=== PATIENT | female | born 1965 | race Caucasian/White ===

== ENCOUNTER 2017-09-17 09:27 | Emergency (ER) | payer MEDICARE, MEDICAID ==
[2017-09-17 09:33] VITALS: BP 143/70
[2017-09-17] MEDS ORDERED: OXYCODONE-ACETAMINOPHEN 5-325 MG TABLET PO ONE (10:05)
[2017-09-17] MEDS ORDERED: NORMAL SALINE 1000 ML 1,000 ML IV ONE (10:05)
--- NOTE | 2017-09-17 10:10 | ER Document Report ---
ED General - General Chief Complaint: Pelvic Pain Stated Complaint: BLOOD IN URINE Time Seen by Provider: 09/17/17 09:55 Information source: Patient Notes: Patient presents complaining of bleeding that she is uncertain where is coming from. Patient is uncertain if she may be having blood in her stool, having vaginal bleeding or blood in her urine. Patient states she has not had her menstrual cycle for over 23 years due to pituitary tumor. Patient states she did have some diarrhea yesterday although none today. Patient denies any nausea or vomiting. Patient denies any fever. Patient does complain of some lower pelvic pain. TRAVEL OUTSIDE OF THE [place] IN LAST 30 DAYS: No - HPI Onset: This morning Onset/Duration: Gradual Quality of pain: Achy Pain Level: 3 Associated symptoms: Other - Lower pelvic, bleeding from either rectal, vaginal or urethra Exacerbated by: Denies Relieved by: Denies Similar symptoms previously: No Recently seen / treated by doctor: No - Related Data Allergies/Adverse Reactions: morphine Allergy (Verified 09/17/17 09:41) Penicillins Allergy (Verified 09/17/17 09:41) Past Medical History - General Information source: Patient - Social History Smoking Status: Current Every Day Smoker Chew tobacco use (# tins/day): No Smoking Education Provided: Yes Frequency of alcohol use: None Drug Abuse: Marijuana Occupation: None Lives with: Alone Family History: Reviewed & Not Pertinent Patient has suicidal ideation: No Patient has homicidal ideation: No EENT Medical History: 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 denies: Fever, Recent illness EENT: No symptoms reported Cardiovascular: No symptoms reported. denies: Chest pain Respiratory: No symptoms reported. denies: Cough, Short of breath Gastrointestinal: Abdominal pain, Diarrhea - Yesterday, none today, Rectal bleeding - possible. denies: Nausea, Vomiting Genitourinary: Hematuria - possible Female Genitourinary: Vaginal bleeding - possible Musculoskeletal: No symptoms reported. denies: Back pain Skin: No symptoms reported Hematologic/Lymphatic: No symptoms reported Neurological/Psychological: No symptoms reported Physical Exam - Vital signs Vitals: Temp Pulse Resp BP Pulse Ox 98.0 F 90 16 143/70 H 98 09/17/17 09:32 09/17/17 09:32 09/17/17 09:32 09/17/17 09:32 09/17/17 09:32 - General General appearance: Appears well, Alert In distress: None - HEENT Head: Normocephalic, Atraumatic Eyes: Normal Conjunctiva: Normal Nasal: Normal Mouth/Lips: Normal Mucous membranes: Normal Pharynx: Normal Neck: Normal, Supple. No: Lymphadenopathy - Respiratory Respiratory status: No respiratory distress Chest status: Nontender Breath sounds: Normal. No: Rales, Rhonchi, Stridor, Wheezing Chest palpation: Normal - Cardiovascular Rhythm: Regular Heart sounds: S1 appreciated, S2 appreciated Murmur: No - Abdominal Inspection: Normal Distension: No distension Bowel sounds: Normal Tenderness: Tender - Umbilical, lower pelvic, Guarding Organomegaly: No organomegaly - Rectal Tenderness: No Stool: See lab result Hemorrhoids: External. No: Internal - Genitourinary External exam: Other - Excoriation noted to right lateral wall of vaginal introitus Speculum exam: Other - Patient unable to tolerate speculum examination Vaginal bleeding: None - Back Back: Normal, Nontender. No: CVA tenderness - Extremities General upper extremity: Normal inspection, Nontender, Normal strength General lower extremity: Normal inspection, Nontender, Normal strength - Neurological Neuro grossly intact: Yes Cognition: Normal [place] Coma Scale Eye Opening: Spontaneous [place] Coma Scale Verbal: Oriented [place] Coma Scale Motor: Obeys Commands [place] Coma Scale Total: 15 - Psychological Associated symptoms: Normal affect, Normal mood - Skin Skin Temperature: Warm Skin Moisture: Dry Skin Color: Normal Course - Re-evaluation Re-evalutation: 09/17/17 11:13 Pelvic examination performed with Marlen FRANKS as standby. Patient unable to tolerate speculum insertion, patient unable to tolerate use of Q-tip for swab. A single digit was inserted vaginally to feel for any obvious abnormality, patient complained of discomfort. Patient without any palpable masses. Patient pelvic examination states that she is having pain and that she is going to kick the provider. Patient with exaggerated pain response during examination. Digital rectal exam performed, no obvious bleeding noted. 09/17/17 11:15 Patient calling nurse to room states that she wants to leave and have IV taken out of her arm. Provider to room explained to patient that source for her abnormal bleeding has not yet been identified and that this could be a potential surgical or potential life-threatening. The patient has decided not to proceed with further recommended testing or treatment to determine the cause of her symptoms. The risk and alternatives to the recommendation were discussed the patient voiced understanding. The patient appears clinically to have the capacity to make this decision. The patient was instructed that they could return to the ER at any time to complete the testing or treatment. - Vital Signs Vital signs: Temp Pulse Resp BP Pulse Ox 98.0 F 90 16 143/70 H 98 09/17/17 09:32 09/17/17 09:32 09/17/17 09:32 09/17/17 09:32 09/17/17 09:32 - Laboratory Result Diagrams: 09/17/17 10:28 09/17/17 10:28 Laboratory results interpreted by me: 09/17/17 09/17/17 09/17/17 09:35 10:28 10:28 WBC 15.3 H Seg Neutrophils % 78.1 H Absolute Neutrophils 11.9 H APTT 39.5 H Urine Blood SMALL H Urine Urobilinogen 4.0 H Ur Leukocyte Esterase TRACE H Discharge - Discharge Clinical Impression: Vaginal bleeding Disposition: AGAINST MEDICAL ADVICE
[2017-09-17 11:02] LABS: ABSOLUTE BASOPHILS # (AUTO) 0.1 10^3/uL (0.0-0.2); ABSOLUTE EOSINOPHILS # (AUTO) 0.1 10^3/uL (0.0-0.6); ABSOLUTE LYMPHOCYTES (AUTO) 2.2 10^3/uL (0.5-4.7); ABSOLUTE NEUT (AUTO) 11.9 10^3/uL (1.7-8.2); BASOPHILS % (AUTO) 0.3 % (0-2); EOSINOPHILS % (AUTO) 0.5 % (0-6); HEMATOCRIT 42.9 % (36.0-47.0); HEMOGLOBIN 14.6 g/dL (12.0-15.5); LYMPHOCYTES % (AUTO) 14.2 % (13-45); MEAN CORPUSCULAR HEMOGLOBIN 30.7 pg (27.0-33.4); MEAN CORPUSCULAR HGB CONC 33.9 g/dL (32.0-36.0); MEAN CORPUSCULAR VOLUME 90 fl (80-97); MONOCYTES % (AUTO) 6.9 % (3-13); PLATELET COUNT 302 10^3/uL (150-450); RED BLOOD COUNT 4.75 10^6/uL (3.72-5.28); RED CELL DISTRIBUTION WIDTH 13.9 % (11.5-14.0); SEGMENTED NEUTROPHILS % (AUTO) 78.1 % (42-78); TOTAL CELLS COUNTED % (AUTO) 100 %; WHITE BLOOD COUNT 15.3 10^3/uL (4.0-10.5)
[2017-09-17 11:28] LABS: INTERNATIONAL RATION (INR) 0.96; PROTHROMBIN TIME 13.3 SEC (11.4-15.4)
[2017-09-17 11:29] LABS: APPEARANCE,URINE CLEAR; BILIRUBIN,URINE NEGATIVE (NEGATIVE); COLOR,URINE YELLOW; GLUCOSE, URINE NEGATIVE (NEGATIVE); KETONES,URINE NEGATIVE (NEGATIVE); LEUKOCYTE ESTERASE,URINE TRACE (NEGATIVE); NITRITE,URINE NEGATIVE (NEGATIVE); PROTEIN,URINE NEGATIVE (NEGATIVE); URINE SPECIFIC GRAVITY 1.014
[2017-09-17 11:29] LABS: PARTIAL THROMBOPLASTIN TIME 39.5 SEC (23.5-35.8)
[2017-09-17 11:32] LABS: RBCS (WET MOUNT) FEW RBCS SEEN; T.VAGINALIS (WET MOUNT) NO TRICHOMONAS SEEN; WBCS (WET MOUNT) 2+ WBCS SEEN; YEAST (WET MOUNT) NO YEAST SEEN
[2017-09-17 11:32] LABS: ALANINE AMINOTRANSFERASE 15 U/L (9-52); ALBUMIN 4.4 g/dL (3.5-5.0); ALKALINE PHOSPHATASE 75 U/L (38-126); ANION GAP 10 (5-19); ASPARTATE AMINO TRANSFERASE 26 U/L (14-36); BILIRUBIN,DIRECT 0.4 mg/dL (0.0-0.4); BILIRUBIN,TOTAL 0.4 mg/dL (0.2-1.3); BLOOD UREA NITROGEN 9 mg/dL (7-20); CALCIUM 9.7 mg/dL (8.4-10.2); CARBON DIOXIDE 30 mmol/L (22-30); CHLORIDE 103 mmol/L (98-107); GLUCOSE 99 mg/dL (75-110); LIPASE 71.1 U/L (23-300); POTASSIUM 4.2 mmol/L (3.6-5.0); SODIUM 143.2 mmol/L (137-145); TOTAL PROTEIN 7.4 g/dL (6.3-8.2)
[2017-09-17 12:59] LABS: CHLAM PCR NOT DETECTED (NOT DETECT); GON PCR NOT DETECTED (NOT DETECT)
== END 2017-09-17 11:30 | disposition left against medical advice (07) ==
LOC: ER 09:27
DX: N93.9 Abnormal uterine and vaginal bleeding, unspecified (principal); S30.814A Abrasion of vagina and vulva, initial encounter; X58.XXXA Exposure to other specified factors, initial encounter; R10.2 Pelvic and perineal pain; E89.3 Postprocedural hypopituitarism; F17.200 Nicotine dependence, unspecified, uncomplicated; Z88.5 Allergy status to narcotic agent; Z88.0 Allergy status to penicillin; Z53.20 Procedure and treatment not carried out because of patient's decision for unspecified reasons
CPT/HCPCS: 99284; 96360; 36415; 87210; 83690; 84703; 85025; 85610; 85730; 80053; 81001; 87491; 87591; A9270; J7030

== ENCOUNTER 2018-05-16 12:43 | Emergency (ER) | payer MEDICARE, MEDICAID ==
--- NOTE | 2018-05-16 13:38 | ER Document Report ---
ED Headache - General Chief Complaint: Headache Stated Complaint: HEADACHE Time Seen by Provider: 05/16/18 13:06 Mode of Arrival: Medic Information source: Patient Notes: Patient is a 52-year-old female who presents to the emergency department with chief complaint of headache and dizziness. Patient reports that she recurrently gets headaches however this morning she also had accompanying dizziness and felt like the room was spinning. 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 Patient reports that she usually gets head CTs done every 2 years, states she has not had one done in at least 4-5 years. Patient denies any fever, nausea, vomiting or diarrhea. Patient reports that she has gone 3 days without smoking any marijuana. She reports that she usually smokes at least $10 worth of marijuana every day and she reports that her main complaint today is that she "cannot find no weed". TRAVEL OUTSIDE OF THE [place] IN LAST 30 DAYS: No - Related Data Allergies/Adverse Reactions: morphine Allergy (Verified 09/17/17 09:41) Penicillins Allergy (Verified 09/17/17 09:41) Past Medical History - General Information source: Patient - Social History Smoking Status: Current Every Day Smoker Frequency of alcohol use: None Drug Abuse: Marijuana Family History: Reviewed & Not Pertinent Endocrine Medical History: Reports: Hx Hypothyroidism Renal/ Medical History: Denies: Hx Peritoneal Dialysis Past Surgical History: Reports: Hx Pituitary Surgery - removed, Other - Shunt s/ p benign brain tumor removal Physical Exam - Vital signs Vitals: Temp Resp 98.1 F 19 05/16/18 12:58 05/16/18 12:58 - Notes Notes: PHYSICAL EXAMINATION: GENERAL: Well-appearing, well-nourished and in no acute distress. HEAD: Atraumatic, normocephalic. EYES: Pupils equal round and reactive to light, extraocular movements intact, conjunctiva are normal. ENT: Nares patent, oropharynx clear without exudates. Moist mucous membranes. NECK: Normal range of motion, supple without lymphadenopathy LUNGS: Breath sounds clear to auscultation bilaterally and equal. No wheezes rales or rhonchi. HEART: Regular rate and rhythm without murmurs ABDOMEN: Soft, nontender, nondistended abdomen. No guarding, no rebound. No masses appreciated. Female : No CVA tenderness Musculoskeletal: Normal range of motion, no pitting or edema. No cyanosis. NEUROLOGICAL: Cranial nerves grossly intact. Normal speech, normal gait. Normal sensory, motor exams PSYCH: Normal mood, normal affect. SKIN: Warm, Dry, normal turgor, no rashes or lesions noted. Course - Re-evaluation Re-evalutation: 05/16/18 13:30 On initial evaluation of this patient patient is awake, alert and declining the need for any medication for nausea or headache. She reports to me that her headache has completely resolved. She is declining any blood work, stating that all she wants done is a head CT. Nursing staff got patient up from the bed to use the bathroom and patient now admits to nursing staff that she indeed she does have a headache that is 3/5 on the pain scale. She reports that this headache feels like her usual headaches and had a gradual onset. The headache is located on the left side of her head. I spoke to the patient again and told her that I really feel that she does need a full workup including blood work and patient is now agreeable to this. Patient is being taken for head CT at this time and when she gets back to the room nursing staff will obtain blood work, EKG and place her on the clinical research monitor. Patient reports complete resolution of her headache after administration of IV Toradol. CBC, CMP and urinalysis are all unremarkable. Head CT is also normal with no acute findings. EKG sinus rhythm, normal axis, no ST segment elevations or depressions, unchanged from previous EKG on file. Patient's vital signs have been stable while in the department today. - Vital Signs Vital signs: Temp Pulse Resp BP Pulse Ox 98.1 F 57 L 18 115/67 100 05/16/18 12:58 05/16/18 18:07 05/16/18 18:07 05/16/18 18:07 05/16/18 18:07 - Laboratory Result Diagrams: 05/16/18 15:14 05/16/18 15:14 Laboratory results interpreted by me: 05/16/18 05/16/18 13:30 15:14 Carbon Dioxide 31 H BUN 6 L Ur Leukocyte Esterase TRACE H Discharge - Discharge Clinical Impression: Headache Qualifiers: Headache type: unspecified Headache chronicity pattern: unspecified pattern Intractability: not intractable Qualified Code(s): R51 - Headache Condition: Stable Disposition: HOME, SELF-CARE Instructions: Toradol Injection (OM) Additional Instructions: Your lab work and urine were normal today. The CAT scan of your head did not show any acute abnormality. I am very happy that the Toradol we gave you resolved her headache. Please have close follow-up with your primary care provider for any additional symptoms. Please return to the emergency department for any worsening symptoms to include headache that is not resolved by your usual headache medications, development of fever, shortness of breath or any other symptom that is concerning to you.
--- NOTE | 2018-05-16 13:56 | RADIOLOGY REPORT (SQ) ---
EXAM DESCRIPTION: CT HEAD WITHOUT COMPLETED DATE/TIME: 05/16/2018 1:40 pm REASON FOR STUDY: vertigo COMPARISON: None. TECHNIQUE: Axial images acquired through the brain without intravenous contrast. Images reviewed wi th bone, brain and subdural windows. Additional sagittal and coronal reconstructions were generated. Images stored on PACS. All CT scanners at this facility use dose modulation, iterative reconstruction, and/or weight based d osing when appropriate to reduce radiation dose to as low as reasonably achievable (ALARA). [facility]: Dose Right [facility]: CareDose [facility]: Dose Right [facility]: Teradose 4D [facility]: [employer] RADIATION DOSE: CT Rad equipment meets quality standard of care and radiation dose reduction techniq ues were employed. CTDIvol: 53.2 mGy. DLP: 1070 mGy-cm. mGy. LIMITATIONS: None. FINDINGS: VENTRICLES: Normal size and contour. CEREBRUM: No masses. No hemorrhage. No midline shift. No evidence for acute infarction. Old right basal ganglia lacunar infarct. Shunt catheter with tip projecting to the skullbase. No hemorrhage o r mass or shift. CEREBELLUM: No masses. No hemorrhage. No alteration of density. No evidence for acute infarction. EXTRAAXIAL SPACES: No fluid collections. No masses. ORBITS AND GLOBE: No intra- or extraconal masses. Normal contour of globe without masses. CALVARIUM: No fracture. Right craniotomy changes. PARANASAL SINUSES: No fluid or mucosal thickening. SOFT TISSUES: No mass or hematoma. OTHER: No other significant finding. IMPRESSION: No acute intracranial abnormality. EVIDENCE OF ACUTE STROKE: NO. COMMENT: Quality ID # [id number]: Final reports with documentation of one or more dose reduction techniques (e.g., Automated exposure control, adjustment of the mA and/or kV according to patient size, use of iterative reconstruction technique) TECHNICAL DOCUMENTATION: JOB ID: [id number] [employer]- All Rights Reserved Reading location - IP/workstation name: [email or web address]
[2018-05-16 14:05] LABS: APPEARANCE,URINE CLEAR; BILIRUBIN,URINE NEGATIVE (NEGATIVE); COLOR,URINE YELLOW; GLUCOSE, URINE NEGATIVE (NEGATIVE); KETONES,URINE NEGATIVE (NEGATIVE); LEUKOCYTE ESTERASE,URINE TRACE (NEGATIVE); NITRITE,URINE NEGATIVE (NEGATIVE); PROTEIN,URINE NEGATIVE (NEGATIVE); URINE SPECIFIC GRAVITY 1.009; UROBILINOGEN,URINE NEGATIVE mg/dL (<2.0)
[2018-05-16] MEDS ORDERED: KETOROLAC TROMETHAMINE INJ/PF 30 MG/1 ML SDV IV ONE (15:40)
[2018-05-16 15:42] LABS: ABSOLUTE EOSINOPHILS # (AUTO) 0.1 10^3/uL (0.0-0.6); ABSOLUTE LYMPHOCYTES (AUTO) 2.5 10^3/uL (0.5-4.7); ABSOLUTE MONOCYTES (AUTO) 0.4 10^3/uL (0.1-1.4); ABSOLUTE NEUT (AUTO) 4.1 10^3/uL (1.7-8.2); BASOPHILS % (AUTO) 0.6 % (0-2); EOSINOPHILS % (AUTO) 1.9 % (0-6); HEMATOCRIT 40.3 % (36.0-47.0); HEMOGLOBIN 14.1 g/dL (12.0-15.5); MEAN CORPUSCULAR HEMOGLOBIN 31.4 pg (27.0-33.4); MEAN CORPUSCULAR HGB CONC 35.1 g/dL (32.0-36.0); MEAN CORPUSCULAR VOLUME 90 fl (80-97); MONOCYTES % (AUTO) 5.4 % (3-13); PLATELET COUNT 310 10^3/uL (150-450); RED CELL DISTRIBUTION WIDTH 13.7 % (11.5-14.0); SEGMENTED NEUTROPHILS % (AUTO) 57.1 % (42-78); TOTAL CELLS COUNTED % (AUTO) 100 %; WHITE BLOOD COUNT 7.1 10^3/uL (4.0-10.5)
[2018-05-16 16:04] LABS: ALANINE AMINOTRANSFERASE 14 U/L (9-52); ALBUMIN 4.3 g/dL (3.5-5.0); ALKALINE PHOSPHATASE 74 U/L (38-126); ANION GAP 6 (5-19); ASPARTATE AMINO TRANSFERASE 21 U/L (14-36); BILIRUBIN,DIRECT 0.2 mg/dL (0.0-0.4); BILIRUBIN,TOTAL 0.4 mg/dL (0.2-1.3); BLOOD UREA NITROGEN 6 mg/dL (7-20); CALCIUM 9.6 mg/dL (8.4-10.2); CARBON DIOXIDE 31 mmol/L (22-30); CHLORIDE 105 mmol/L (98-107); CREATINE KINASE 55 U/L (30-135); GLUCOSE 95 mg/dL (75-110); POTASSIUM 4.1 mmol/L (3.6-5.0); SODIUM 141.8 mmol/L (137-145); TOTAL PROTEIN 7.5 g/dL (6.3-8.2)
[2018-05-16 16:16] LABS: CREATINE KINASE MB < 0.22 ng/mL (<4.55); TROPONIN I < 0.012 ng/mL
[2018-05-16 18:14] VITALS: BP 115/67
--- NOTE | 2018-05-18 00:44 | EKG REPORT ---
SEVERITY:- BORDERLINE ECG - SINUS RHYTHM SHORT CA INTERVAL, ACCELERATED AV CONDUCTION : Confirmed by: Julieth Cook MD 18-May-2018 00:43:52
== END 2018-05-16 18:14 | disposition home or self-care (01) ==
LOC: ER 12:43
DX: R51 Headache (principal); R42 Dizziness and giddiness; F17.200 Nicotine dependence, unspecified, uncomplicated; F12.90 Cannabis use, unspecified, uncomplicated
CPT/HCPCS: 93005; 99285; 96374; 36415; 82553; 82550; 85025; 80053; 81001; 84484; 70450; 93010; J1885

== ENCOUNTER 2019-06-25 13:25 | Emergency (ER) | payer MEDICARE, MEDICAID ==
[2019-06-25 14:07] VITALS: BP 138/82
[2019-06-25] MEDS ORDERED: DIPH/PERTUSS(ACELL)/TETANUS VAC/PF 0.5 ML SYR (>=10YO) IM ONE (14:09)
--- NOTE | 2019-06-25 14:15 | ER Document Report ---
HPI - HPI Time Seen by Provider: 06/25/19 14:09 Notes: 54-year-old female patient presenting to the emergency department with chief complaint of cat bite to her left hand. She reports this occurred 2 days ago, she states it was her cat. She states immunizations up-to-date and the cat was acting normally. She states that another cat and this cat were in a fight and she intervened. She states she washed the area immediately with soapy water and has been cleaning it appropriately. Her friend told her to come to the ED for antibiotics. Tdap is not up-to-date. Past Medical History - General Information source: Patient - Social History Smoking Status: Current Every Day Smoker Frequency of alcohol use: None Lives with: Alone Family History: Reviewed & Not Pertinent Endocrine Medical History: Reports: Hx Hypothyroidism Renal/ Medical History: Denies: Hx Peritoneal Dialysis Past Surgical History: Reports: Hx Pituitary Surgery - removed, Other - Shunt s/p benign brain tumor removal Vertical Provider Document - CONSTITUTIONAL Notes: PHYSICAL EXAMINATION: GENERAL: Well-appearing, well-nourished and in no acute distress. HEAD: Atraumatic, normocephalic. EYES: Pupils equal round extraocular movements intact, conjunctiva are normal. ENT: Nares patent NECK: Normal range of motion LUNGS: No respiratory distress Musculoskeletal: Normal range of motion NEUROLOGICAL: Normal speech, normal gait. PSYCH: Normal mood, normal affect. SKIN: Abrasion/healing laceration noted to dorsal surface of left hand, mild erythema noted, no obvious streaking noted, no drainage noted appears to be healing well. Cap refill less than 3 seconds, strong radial pulse, equal medicaid biller bilaterally, normal motor and sensation distal to area of injury. - INFECTION CONTROL TRAVEL OUTSIDE OF THE [place] IN LAST 30 DAYS: No Course - Re-evaluation Re-evalutation: Patient given Tdap immunization. Will be started on oral antibiotics. The wound appears well, mild surrounding erythema but no obvious infection at this point. Patient given very strict ED return precautions which she verbalized understanding and agreement with. - Vital Signs Vital signs: Temp Pulse Resp BP Pulse Ox 98.0 F 83 18 138/82 H 99 06/25/19 14:04 06/25/19 14:04 06/25/19 14:04 06/25/19 14:04 06/25/19 14:04 Discharge - Discharge Clinical Impression: Cat bite Qualifiers: Encounter type: initial encounter Qualified Code(s): W55.01XA - Bitten by cat, initial encounter Condition: Stable Disposition: HOME, SELF-CARE Additional Instructions: Animal Bites Animal bites are often heavily contaminated with bacteria. In spite of thorough cleansing and proper treatment, these wounds frequently become infected. Bite wounds of the hands are especially prone to complications. Bites are dressed, if possible. Large wounds may require suturing after internal cleansing. Because of infection risk, some large wounds must remain unstitched. Your doctor is trained to advise you on the best treatment for your bite. Call the doctor at once if the wound becomes red, swollen, warm, increasingly painful, or if it begins to drain. Danger signs also include red streaks up the involved extremity, swollen glands in the groin or under the arm, or fever and chills. The risk of rabies from domestic animals is very low. Bats, sick animals, and wild animals may expose you to rabies. The physician, or the [facility], will inform you if you will need to receive the rabies vaccine. Tetanus Immunization Given You have been given an immunization against tetanus. Please record this in your records. In general, a booster is needed only once every 10 years. The tetanus shot protects against tetanus or "lockjaw," which is a complication of certain wound infections (the tetanus shot cannot protect against the actual infection). The immunization site may become warm and red due to local reaction. If this occurs, apply warm compresses and take aspirin or ibuprofen to reduce inflammation and discomfort. Return for evaluation if the reaction becomes severe. Please take antibiotics as prescribed. Watch very closely for signs of infection to include increasing swelling, pain, redness, red streaking from the area, development of fever or any other worsening symptoms. Prescriptions: Clindamycin HCl 300 mg PO TID #21 capsule Doxycycline Hyclate 100 mg PO BID #14 capsule Referrals: ALMA DELIA BLANCO MD [Primary Care Provider] - Follow up as needed
== END 2019-06-25 15:10 | disposition home or self-care (01) ==
LOC: ER 13:25
DX: S61.452A Open bite of left hand, initial encounter (principal); W55.01XA Bitten by cat, initial encounter; F17.200 Nicotine dependence, unspecified, uncomplicated
CPT/HCPCS: 90471; 90715; 99283